=== PATIENT | male | born 1970 | race Hispanic/Latino ===

== ENCOUNTER 2022-01-22 20:36 | Emergency (ER) | payer MEDICARE, OTHER ==
[~2022-01-22] VITALS: Ht 180.3 cm; Wt 144.7 kg
[2022-01-22] MEDS ORDERED: 0.9%NACL 1000ML 1,000 ML IV SCH (21:00)
[2022-01-22] MEDS ORDERED: INSULIN HUMULIN R 100 UNIT/ML 3ML IV ONE (21:00)
[2022-01-22 21:11] LABS: APPEARANCE,URINE CLOUDY (CLEAR); BASOPHILS % (AUTO) 0.7 % (0.0-5.0); BILIRUBIN,URINE NEGATIVE (NEGATIVE); COLOR,URINE YELLOW (YELLOW); EOSINOPHILS % (AUTO) 9.2 % (0.0-8.0); GLUCOSE, URINE (UA) >=1000 mg/dL (NEGATIVE); HEMATOCRIT 39.9 % (42-54); KETONES,URINE NEGATIVE (NEGATIVE); LEUKOCYTE ESTERASE ,URINE NEGATIVE (NEGATIVE); LYMPHOCYTES % (AUTO) 28.1 % (21.0-51.0); MEAN CORPUSCULAR HEMOGLOBIN 30.1 pg (27.0-33.0); MEAN CORPUSCULAR HGB CONC 36.3 g/dL (32.0-36.0); MONOCYTES % (AUTO) 5.3 % (3.0-13.0); NEUTROPHILS % (AUTO) 56.3 % (40.0-77.0); NITRATE,URINE NEGATIVE (NEGATIVE); OCCULT BLOOD,URINE MODERATE (NEGATIVE); PH,URINE 5.5 (5.0-8.0); PLATELET COUNT (AUTO) 217 K/uL (130-400); PROTEIN,URINE 100 mg/dL (NEGATIVE); RED BLOOD CELL COUNT(AUTO) 4.81 MIL/uL (4.50-6.20); RED CELL DISTRIBUTION WIDTH 12.7 % (11.0-15.5); UROBILINOGEN,URINE 0.2 mg/dL (0.2-1.0); WHITE BLOOD COUNT (AUTO) 9.6 K/uL (4.8-10.8)
[2022-01-22 21:20] LABS: BACTERIA,URINE Few /HPF (None Seen); CREATININE 1.2 mg/dL (0.5-1.5); HYALINE CASTS, URINE 0-1 /LPF (0-1 /LPF); MUCUS,URINE Rare LPF (None Seen); POTASSIUM 3.9 mmol/L (3.5-5.1); SQUAMOUS EPITHELIAL CELL,UR Rare /HPF (0-2)
[2022-01-22 21:24] LABS: ALBUMIN 3.3 g/dL (3.5-5.0); CRP QUANTITATIVE 12.1 mg/L (0.00-9.0)
[2022-01-22 21:36] LABS: B-TYPE NATRIURETIC PEPTIDE 15 pg/mL (0-100)
[2022-01-22] MEDS ORDERED: CEFTRIAXONE 1G VIAL ONE (21:37)
[2022-01-22] MEDS ORDERED: CEFTRIAXONE 1G VIAL IVP ONE (22:00)
[2022-01-22] MEDS ORDERED: CEPH500B PO (22:13)
[2022-01-22 22:24] VITALS: BP 153/82
== END 2022-01-22 22:34 | disposition home or self-care (01) ==
LOC: EDH 20:36
DX: N39.0 Urinary tract infection, site not specified (principal); E86.0 Dehydration; E11.65 Type 2 diabetes mellitus with hyperglycemia; Z20.822 Contact with and (suspected) exposure to COVID-19; I10 Essential (primary) hypertension; Z89.512 Acquired absence of left leg below knee; E66.9 Obesity, unspecified; Z68.41 Body mass index [BMI] 40.0-44.9, adult
CPT/HCPCS: 99285; 96374; 87635; 71045; 96375; 82550; 84484; 80053; 83880; 85025; 87077; 87088; 87186; 87804 ×2; 82948 ×3; 83605; 86140; 81001; 36415; 93005; J1815; C9803; J7030; J0696